=== PATIENT | female | born 1965 ===

== ENCOUNTER 2017-07-22 23:28 | Observation (INO) | payer BC ==
--- NOTE | 2017-07-23 00:27 | ED PDOC ---
HPI: Chest Pain Time Seen by Provider: 07/22/17 23:40 Chief Complaint (Nursing): Chest Pain Chief Complaint (Provider): Chest Pain History Per: Patient History/Exam Limitations: no limitations Current Symptoms Are (Timing): Still Present Additional Complaint(s): Patient is a 52 y/o female with a history of hypertriglyceridemia and dyslipidemia who presents to the ED with acute left sided chest pain that radiates down her left arm. She admits to nausea and a mild headache but denies vomiting and diaphoresis. PMD: None Provided Past Medical History Reviewed: Historical Data, Nursing Documentation, Vital Signs Vital Signs: Last Vital Signs Temp 98.1 F 07/23/17 05:09 Pulse 60 07/23/17 05:09 Resp 18 07/23/17 05:09 BP 113/74 07/23/17 05:09 Pulse Ox 98 07/23/17 05:09 - Medical History PMH: Hypercholesterolemia Other PMH: hypertriglyceridemia, dyslipidemia - Surgical History Surgical History: No Surg Hx - Family History Family History: States: Unknown Family Hx - Social History Current smoker - smoking cessation education provided: No Ex-Smoker (has not smoked in the last 12 months): No Alcohol: None Drugs: Denies - Home Medications Home Medications: Ambulatory Orders Medication Instructions Recorded Simvastatin [Zocor] 20 mg PO DAILY 07/23/17 - Allergies Allergies/Adverse Reactions: Allergies Allergy/AdvReac Type Severity Reaction Status Date / Time No Known Allergies Allergy Verified 08/24/16 13:37 Review of Systems ROS Statement: Except As Marked, All Systems Reviewed And Found Negative Constitutional: Negative for: Sweats Cardiovascular: Positive for: Chest Pain Gastrointestinal: Positive for: Nausea. Negative for: Vomiting Physical Exam - Reviewed Nursing Documentation Reviewed: Yes Vital Signs Reviewed: Yes - Physical Exam Appears: Positive for: Non-toxic, No Acute Distress Head Exam: Positive for: ATRAUMATIC, NORMAL INSPECTION, NORMOCEPHALIC Skin: Positive for: Normal Color, Warm, Dry Eye Exam: Positive for: Normal appearance, EOMI, PERRL. Negative for: Nystagmus ENT: Positive for: Normal ENT Inspection Neck: Positive for: Normal, Painless ROM, Supple Cardiovascular/Chest: Positive for: Regular Rate, Rhythm. Negative for: Edema, Murmur Respiratory: Positive for: Normal Breath Sounds. Negative for: Wheezing, Respiratory Distress Gastrointestinal/Abdominal: Positive for: Normal Exam, Bowel Sounds, Soft. Negative for: Tenderness Back: Positive for: Normal Inspection Extremity: Positive for: Normal ROM. Negative for: Pedal Edema, Deformity Neurologic/Psych: Positive for: Alert, Oriented - Laboratory Results Result Diagrams: 07/23/17 01:32 07/23/17 01:32 - ECG O2 Sat by Pulse Oximetry: 99 (RA) Pulse Ox Interpretation: Normal - Radiology X-Ray: Interpreted by Me, Viewed By Me X-Ray Interpretation: No Acute Disease Medical Decision Making Medical Decision Making: Time: 23:50 Initial Impression: 52 y/o female with chest pain in setting of dyslipidemia Initial Plan: --EKG --CMP --Troponin I --Urine --CBC --CXR --Aspirin --Urinalysis Time: 00:00 --Chest XR negative Time: 2:20 --Labs were viewed and show no clinically significant abnormalities --Patient placed on chest pain observation given risk factors including hypertriglycemia and dyslipidemia --Referred to Dr. Eric Scribe Attestation: Documented by Ever Truong, acting as a scribe for Dr. Angel Silva MD. Provider Scribe Attestation: All medical record entries made by the Scribe were at my direction and personally dictated by me. I have reviewed the chart and agree that the record accurately reflects my personal performance of the history, physical exam, medical decision making, and the department course for this patient. I have also personally directed, reviewed, and agree with the discharge instructions and disposition. Disposition - Clinical Impression Clinical Impression: Chest pain - Patient ED Disposition Is Patient to be Admitted: Yes Discussed With : Abdulkadir Clifford - Disposition Disposition Time: 01:00 Condition: FAIR - Pt Status Changed To: Hospital Disposition Of: Observation - POA Present On Arrival: None
[2017-07-23 01:36] LABS: BASO # 0.1 K/uL (0.0-0.2); BASO % 0.8 % (0.0-2.0); EOS # 0.1 K/uL (0.0-0.7); EOS % 0.9 % (0.0-4.0); HEMATOCRIT 40.8 % (34.0-47.0); LYMPH % 24.2 % (20.0-40.0); MEAN CELL VOLUME 87.3 fl (81.0-99.0); MEAN CORPUSCULAR HEMOGLOBIN 29.6 pg (27.0-31.0); MEAN CORPUSCULAR HGB CONC 33.9 g/dL (33.0-37.0); MONO # 0.6 K/uL (0.0-0.8); MONO % 7.5 % (0.0-10.0); NEUT # 5.5 K/uL (1.8-7.0); NEUT % 66.6 % (50.0-75.0); NRBC % 0.1 % (0.0-0.0); RED CELL DISTRIBUTION WIDTH 13.3 % (11.5-14.5); WHITE BLOOD COUNT 8.2 K/uL (4.8-10.8)
[2017-07-23 01:46] LABS: ALB/GLOB RATIO 1.4 (1.0-2.1); ALKALINE PHOSPHATASE 95 U/L (38-126); ALT/SGPT 50 U/L (9-52); AST/SGOT 84 U/L (14-36); BILIRUBIN,TOTAL 0.2 mg/dl (0.2-1.3); BLOOD UREA NITROGEN 16 mg/dl (7-17); CALCIUM 9.8 mg/dL (8.4-10.2); CARBON DIOXIDE 25 mmol/L (22-30); CHLORIDE 107 mmol/L (98-107); GFR AFRICAN-AMERICAN > 60; GLUCOSE,RANDOM 98 mg/dL (65-105); SODIUM 145 mmol/l (132-148)
[2017-07-23 02:26] LABS: RBC URINE 3 /hpf (0-3); URINE BILIRUBIN NEGATIVE (NEGATIVE); URINE BLOOD NEGATIVE (NEGATIVE); URINE COLOR BLUE (YELLOW); URINE GLUCOSE (UA) NEG (Normal); URINE KETONE NEGATIVE (NEGATIVE); URINE LEUKOCYTE ESTERASE NEG Leu/uL (Negative); URINE PROTEIN NEGATIVE (NEGATIVE); URINE UROBILINOGEN 0.2-1.0 mg/dL (0.2-1.0); WBC URINE 1 /hpf (0-5)
[2017-07-23 02:37] LABS: URINE BACTERIA TRACE (<OCC)
[2017-07-23] MEDS ORDERED: Influenza Vaccine 18yr & older 0.5 ML/45 MCG SYR IM ONE (06:00)
--- NOTE | 2017-07-23 08:15 | CARD ---
APPROVED REPORT EKG Measurement Heart [id number] <Conclusion> Normal sinus rhythm Nonspecific T wave abnormality Abnormal ECG
--- NOTE | 2017-07-23 08:19 | CARD ---
APPROVED REPORT EKG Measurement Heart [id number] <Conclusion> Normal sinus rhythm Cannot rule out Anterior infarct, age undetermined Abnormal ECG
[2017-07-23 17:02] VITALS: BP 104/67; PULSE 76; RESP 18; TEMP 98.1; O2SAT 99
--- NOTE | 2017-07-23 18:28 | CP.PCM.HP ---
Past Patient History - Infectious Disease Hx of Infectious Diseases: None - Past Medical History & Family History Past Medical History?: Yes - Past Social History Alcohol: None Drugs: Denies - CARDIAC Hx Hypercholesterolemia: Yes - PULMONARY Hx Respiratory Disorders: No - NEUROLOGICAL Hx Neurological Disorder: No - HEENT Hx HEENT Problems: No - RENAL Hx Chronic Kidney Disease: No - ENDOCRINE/METABOLIC Hx Endocrine Disorders: No - HEMATOLOGICAL/ONCOLOGICAL Hx Blood Disorders: No Hx AIDS: No Hx Human Immunodeficiency Virus (HIV): No - INTEGUMENTARY Hx Dermatological Problems: No - MUSCULOSKELETAL/RHEUMATOLOGICAL Hx Musculoskeletal Disorders: No Hx Falls: No - GASTROINTESTINAL Hx Gastrointestinal Disorders: No - GENITOURINARY/GYNECOLOGICAL Hx Genitourinary Disorders: No - PSYCHIATRIC Hx Psychophysiologic Disorder: No Hx Substance Use: No - SURGICAL HISTORY Hx Surgeries: No - ANESTHESIA Hx Anesthesia: Yes Hx Anesthesia Reactions: No Hx Malignant Hyperthermia: No Meds Allergies/Adverse Reactions: Allergies Allergy/AdvReac Type Severity Reaction Status Date / Time No Known Allergies Allergy Verified 08/24/16 13:37 Results - Vital Signs Recent Vital Signs: Last Vital Signs Temp 98.1 F 07/23/17 17:01 Pulse 76 07/23/17 17:01 Resp 18 07/23/17 17:01 BP 104/67 07/23/17 17:01 Pulse Ox 99 07/23/17 17:01 - Labs Result Diagrams: 07/23/17 01:32 07/23/17 01:32 Labs: Laboratory Results - last 24 hr 07/23/17 07/23/17 07/23/17 01:32 01:32 02:02 WBC 8.2 RBC 4.67 Hgb 13.8 Hct 40.8 MCV 87.3 MCH 29.6 MCHC 33.9 RDW 13.3 Plt Count 235 MPV 9.0 Neut % (Auto) 66.6 Lymph % (Auto) 24.2 Eddy % (Auto) 7.5 Eos % (Auto) 0.9 Baso % (Auto) 0.8 Neut # 5.5 Lymph # 2.0 Eddy # 0.6 Eos # 0.1 Baso # 0.1 Sodium 145 Potassium 4.0 Chloride 107 Carbon Dioxide 25 Anion Gap 18 BUN 16 Creatinine 0.7 Est GFR ( Amer) > 60 Est GFR (Non-Af Amer) > 60 Random Glucose 98 Calcium 9.8 Total Bilirubin 0.2 AST 84 H ALT 50 Alkaline Phosphatase 95 Troponin I < 0.0120 Total Protein 8.0 Albumin 4.6 Globulin 3.4 Albumin/Globulin Ratio 1.4 Urine Color Blue Urine Clarity Cloudy Urine pH 7.0 Ur Specific [place] 1.006 Urine Protein Negative Urine Glucose (UA) Neg Urine Ketones Negative Urine Blood Negative Urine Nitrate Negative Urine Bilirubin Negative Urine Urobilinogen 0.2-1.0 Ur Leukocyte Esterase Neg Urine RBC (Auto) 3 Urine Microscopic WBC 1 Ur Squamous Epith Cells < 1 Amorphous Sediment Occ H Urine Bacteria Trace 07/23/17 07/23/17 09:00 14:30 WBC RBC Hgb Hct MCV MCH MCHC RDW Plt Count MPV Neut % (Auto) Lymph % (Auto) Eddy % (Auto) Eos % (Auto) Baso % (Auto) Neut # Lymph # Eddy # Eos # Baso # Sodium Potassium Chloride Carbon Dioxide Anion Gap BUN Creatinine Est GFR ( Amer) Est GFR (Non-Af Amer) Random Glucose Calcium Total Bilirubin AST ALT Alkaline Phosphatase Troponin I < 0.0120 < 0.0120 Total Protein Albumin Globulin Albumin/Globulin Ratio Urine Color Urine Clarity Urine pH Ur Specific [place] Urine Protein Urine Glucose (UA) Urine Ketones Urine Blood Urine Nitrate Urine Bilirubin Urine Urobilinogen Ur Leukocyte Esterase Urine RBC (Auto) Urine Microscopic WBC Ur Squamous Epith Cells Amorphous Sediment Urine Bacteria
--- NOTE | 2017-07-23 18:35 | CP.PCM.DIS ---
Provider - Provider Date of Admission: 07/23/17 01:42 Attending physician: Abdulkadir Clifford MD Time Spent in preparation of Discharge (in minutes): 15 Hospital Course - Lab Results Lab Results: Most Recent Lab Values WBC 8.2 K/uL (4.8-10.8) 07/23/17 01:32 RBC 4.67 Mil/uL (3.80-5.20) 07/23/17 01:32 Hgb 13.8 g/dL (12.0-16.0) 07/23/17 01:32 Hct 40.8 % (34.0-47.0) 07/23/17 01:32 MCV 87.3 fl (81.0-99.0) 07/23/17 01:32 MCH 29.6 pg (27.0-31.0) 07/23/17 01:32 MCHC 33.9 g/dL (33.0-37.0) 07/23/17 01:32 RDW 13.3 % (11.5-14.5) 07/23/17 01:32 Plt Count 235 K/uL (130-400) 07/23/17 01:32 MPV 9.0 fl (7.2-11.7) 07/23/17 01:32 Neut % (Auto) 66.6 % (50.0-75.0) 07/23/17 01:32 Lymph % (Auto) 24.2 % (20.0-40.0) 07/23/17 01:32 [place] % (Auto) 7.5 % (0.0-10.0) 07/23/17 01:32 Eos % (Auto) 0.9 % (0.0-4.0) 07/23/17 01:32 Baso % (Auto) 0.8 % (0.0-2.0) 07/23/17 01:32 Neut # 5.5 K/uL (1.8-7.0) 07/23/17 01:32 Lymph # 2.0 K/uL (1.0-4.3) 07/23/17 01:32 [place] # 0.6 K/uL (0.0-0.8) 07/23/17 01:32 Eos # 0.1 K/uL (0.0-0.7) 07/23/17 01:32 Baso # 0.1 K/uL (0.0-0.2) 07/23/17 01:32 Sodium 145 mmol/l (132-148) 07/23/17 01:32 Potassium 4.0 MMOL/L (3.6-5.0) 07/23/17 01:32 Chloride 107 mmol/L (98-107) 07/23/17 01:32 Carbon Dioxide 25 mmol/L (22-30) 07/23/17 01:32 Anion Gap 18 (10-20) 07/23/17 01:32 BUN 16 mg/dl (7-17) 07/23/17 01:32 Creatinine 0.7 mg/dL (0.7-1.2) 07/23/17 01:32 Est GFR ( Amer) > 60 07/23/17 01:32 Est GFR (Non-Af Amer) > 60 07/23/17 01:32 Random Glucose 98 mg/dL (65-105) 07/23/17 01:32 Calcium 9.8 mg/dL (8.4-10.2) 07/23/17 01:32 Total Bilirubin 0.2 mg/dl (0.2-1.3) 07/23/17 01:32 AST 84 U/L (14-36) H 07/23/17 01:32 ALT 50 U/L (9-52) 07/23/17 01:32 Alkaline Phosphatase 95 U/L (38-126) 07/23/17 01:32 Troponin I < 0.0120 ng/mL (0.00-0.120) 07/23/17 14:30 Total Protein 8.0 G/DL (6.3-8.2) 07/23/17 01:32 Albumin 4.6 g/dL (3.5-5.0) 07/23/17 01:32 Globulin 3.4 gm/dL (2.2-3.9) 07/23/17 01:32 Albumin/Globulin Ratio 1.4 (1.0-2.1) 07/23/17 01:32 Urine Color Blue (YELLOW) 07/23/17 02:02 Urine Clarity Cloudy (Clear) 07/23/17 02:02 Urine pH 7.0 (5.0-8.0) 07/23/17 02:02 Ur Specific [place] 1.006 (1.003-1.030) 07/23/17 02:02 Urine Protein Negative mg/dL (NEGATIVE) 07/23/17 02:02 Urine Glucose (UA) Neg mg/dL (Normal) 07/23/17 02:02 Urine Ketones Negative mg/dL (NEGATIVE) 07/23/17 02:02 Urine Blood Negative (NEGATIVE) 07/23/17 02:02 Urine Nitrate Negative (NEGATIVE) 07/23/17 02:02 Urine Bilirubin Negative (NEGATIVE) 07/23/17 02:02 Urine Urobilinogen 0.2-1.0 mg/dL (0.2-1.0) 07/23/17 02:02 Ur Leukocyte Esterase Neg Homa/uL (Negative) 07/23/17 02:02 Urine RBC (Auto) 3 /hpf (0-3) 07/23/17 02:02 Urine Microscopic WBC 1 /hpf (0-5) 07/23/17 02:02 Ur Squamous Epith Cells < 1 /hpf (0-5) 07/23/17 02:02 Amorphous Sediment Occ /ul (<OCC) H 07/23/17 02:02 Urine Bacteria Trace (<OCC) 07/23/17 02:02 Discharge Exam - Head Exam Head Exam: ATRAUMATIC, NORMAL INSPECTION, NORMOCEPHALIC Discharge Plan - Discharge Medications Prescriptions: Aspirin [Aspirin Chewable] 81 mg PO DAILY #30 ctb Naproxen [Naprosyn] 500 mg PO BID PRN #20 tablet PRN Reason: Headache - Follow Up Plan Condition: FAIR Disposition: HOME/ ROUTINE
--- NOTE | 2017-07-24 16:41 | CARD ---
APPROVED REPORT EKG Measurement Heart [id number] <Conclusion> Normal sinus rhythm Nonspecific T wave abnormality Abnormal ECG
== END 2017-07-23 19:05 | disposition home or self-care (01) ==
LOC: H.ER 23:28 → H.TEL 07-23 01:42
PROVIDERS: ADMIT Internal Medicine; ATTEND Internal Medicine
DX: R51 Headache (principal); E78.00 Pure hypercholesterolemia, unspecified; E78.1 Pure hyperglyceridemia; E78.5 Hyperlipidemia, unspecified; Z79.899 Other long term (current) drug therapy; Z23 Encounter for immunization
CPT/HCPCS: 71020; 80053; 81003; 81025; 84484; 85025; 93005; 99285; G0008; G0378; Q2035

== ENCOUNTER 2018-01-10 18:11 | Observation (INO) | payer BC ==
[2018-01-10 19:51] LABS: BASO # 0.1 K/uL (0.0-0.2); BASO % 0.7 % (0.0-2.0); EOS # 0.1 K/uL (0.0-0.7); EOS % 1.4 % (0.0-4.0); HEMOGLOBIN 13.6 g/dL (12.0-16.0); LYMPH # 2.7 K/uL (1.0-4.3); LYMPH % 26.6 % (20.0-40.0); MEAN CELL VOLUME 88.4 fl (81.0-99.0); MEAN CORPUSCULAR HEMOGLOBIN 29.7 pg (27.0-31.0); MEAN CORPUSCULAR HGB CONC 33.6 g/dL (33.0-37.0); MEAN PLATELET VOLUME 8.6 fl (7.2-11.7); MONO # 0.7 K/uL (0.0-0.8); MONO % 6.5 % (0.0-10.0); NEUT # 6.6 K/uL (1.8-7.0); NEUT % 64.8 % (50.0-75.0); NRBC % 0.1 % (0.0-0.0); RBC 4.58 Mil/uL (3.80-5.20); RED CELL DISTRIBUTION WIDTH 13.1 % (11.5-14.5); WHITE BLOOD COUNT 10.2 K/uL (4.8-10.8)
[2018-01-10 20:00] LABS: ALB/GLOB RATIO 1.2 (1.0-2.1); ALBUMIN 4.4 g/dL (3.5-5.0); ALT/SGPT 35 U/L (9-52); AMYLASE 257 U/L (30-110); AST/SGOT 29 U/L (14-36); BLOOD UREA NITROGEN 15 mg/dl (7-17); CALCIUM 9.2 mg/dL (8.4-10.2); GFR AFRICAN-AMERICAN > 60; GFR NON-AFRICAN AMERICAN > 60; PARTIAL THROMBOPLASTIN TIME 36.1 Seconds (25.6-37.1); PROTHROMBIN TIME 10.7 Seconds (9.8-13.1)
--- NOTE | 2018-01-10 20:04 | ED PDOC ---
HPI: Abdomen Time Seen by Provider: 01/10/18 19:03 Chief Complaint (Nursing): Abdominal Pain Chief Complaint (Provider): Abdominal pain History Per: Patient History/Exam Limitations: no limitations Onset/Duration Of Symptoms: Days (2) Outside of [place] travel?: No Current Symptoms Are (Timing): Still Present Location Of Pain/Discomfort: RUQ, Epigastric Associated Symptoms: Back Pain. denies: Nausea, Vomiting, Diarrhea, Loss Of Appetite, Constipation, Urinary Symptoms Additional History Per: Patient Additional Complaint(s): 52yo female with history of high triglycerides, presents to ED with complaints of abdominal pain for the past 2 days, mainly in her epigastric an right upper quadrant. Patient states the pain is radiating to her back and is constant, with intermittent episodes where it becomes severe and sharp. She states the pain worsens with deep breathing. She reports normal PO intake and normal appetite; denies any nausea, vomiting, diarrhea, constipation or urinary symptoms. Patient states she took some Pepto Bismol without relief of her symptoms. She has no other medical complaints. PMD: Dr. Green Past Medical History Reviewed: Historical Data, Nursing Documentation, Vital Signs Vital Signs: Last Vital Signs Temp 98 F 01/12/18 16:28 Pulse 67 01/12/18 16:28 Resp 20 01/12/18 16:28 BP 124/79 01/12/18 16:28 Pulse Ox 97 01/12/18 16:28 - Medical History PMH: Hypercholesterolemia Denies: HIV, Chronic Kidney Disease - Surgical History Surgical History: No Surg Hx - Family History Family History: States: Unknown Family Hx - Social History Current smoker - smoking cessation education provided: No Alcohol: None Drugs: Denies - Home Medications Home Medications: Ambulatory Orders Medication Instructions Recorded Simvastatin [Zocor] 20 mg PO DAILY 07/23/17 Famotidine [Pepcid] 20 mg PO DAILY #30 tab 01/12/18 - Allergies Allergies/Adverse Reactions: Allergies Allergy/AdvReac Type Severity Reaction Status Date / Time No Known Allergies Allergy Verified 08/24/16 13:37 Review of Systems ROS Statement: Except As Marked, All Systems Reviewed And Found Negative (as per HPI) Gastrointestinal: Positive for: Abdominal Pain. Negative for: Nausea, Vomiting , Diarrhea, Constipation Genitourinary Female: Negative for: Dysuria, Frequency, Hematuria Musculoskeletal: Positive for: Back Pain Physical Exam - Reviewed Nursing Documentation Reviewed: Yes Vital Signs Reviewed: Yes - Physical Exam Appears: Positive for: Uncomfortable, In Acute Distress Head Exam: Positive for: ATRAUMATIC, NORMAL INSPECTION, NORMOCEPHALIC Skin: Positive for: Warm, Dry. Negative for: Jaundice Eye Exam: Positive for: EOMI, PERRL ENT: Negative for: Pharyngeal Erythema, Tonsillar Exudate Neck: Positive for: Painless ROM, Supple Cardiovascular/Chest: Positive for: Regular Rate, Rhythm. Negative for: Murmur Respiratory: Positive for: Normal Breath Sounds. Negative for: Wheezing Gastrointestinal/Abdominal: Positive for: Soft, Tenderness (epigastric, right upper quadrant; (+) Mojica's sign (-) McBurney's point tenderness). Negative for: Mass, Distended, Guarding, Rebound Back: Positive for: R CVA Tenderness. Negative for: Decreased ROM Extremity: Positive for: Normal ROM. Negative for: Deformity Lymphatic: Negative for: Adenopathy Neurologic/Psych: Positive for: Alert. Negative for: Motor/Sensory Deficits - Laboratory Results Result Diagrams: 01/11/18 06:10 01/11/18 06:10 - ECG O2 Sat by Pulse Oximetry: 99 (RA) Pulse Ox Interpretation: Normal Medical Decision Making Medical Decision Making: Impression: Abdominal pain Differential (including but not limited to): Gallstones, pancreatitis, cholecystitis, hepatitis, renal colic Plan: -- Labs -- Toradol 15 mg IVP -- Morphine 4mg IVP -- US Gallbladder and hepatic Time: 2044 US Gallbladder and Hepatic FINDINGS: Liver: Unremarkable. No intrahepatic bile duct dilation. Gallbladder: Unremarkable. No gallstones. Common bile duct: Measures 4 mm. Pancreas: Unremarkable as visualized. Right kidney: Unremarkable. No hydronephrosis. IMPRESSION: No evidence of cholelithiasis. Time: 2099 US findings discussed with patient. Case discussed with Dr. Puckett and orders placed per discussion. Time: [address] Peraza, patient to be admitted under his service for pancreatitis. Plan for admission discussed with patient who is agreeable. Scribe Attestation: Documented by Shameka Clifford acting as a scribe for Gisele Reyes MD. Provider Attestation: All medical record entries made by the Scribe were at my direction and personally dictated by me. I have reviewed the chart and agree that the record accurately reflects my personal performance of the history, physical exam, medical decision making, and the department course for this patient. I have also personally directed, reviewed, and agree with the discharge instructions and disposition. Disposition - Clinical Impression Clinical Impression: Pancreatitis, Hypertriglyceridemia - Disposition Disposition Time: 21:00 Condition: FAIR - Pt Status Changed To: Hospital Disposition Of: Observation - POA Present On Arrival: None
[2018-01-10 20:34] LABS: LIPASE 2334 U/L (23-300)
[2018-01-10] MEDS ORDERED: Sodium Chloride 0.9% 1,000 ML IV STA ×2 (21:20→21:21)
[2018-01-10] MEDS: Dextrose 5%/Lactated Ringer's 1,000 ML IV SCH (23:28)
[2018-01-11] MEDS: Dextrose 5%/Lactated Ringer's 1,000 ML IV SCH ×3 (05:30→18:33)
[2018-01-11 06:51] LABS: BASO # 0.1 K/uL (0.0-0.2); BASO % 0.7 % (0.0-2.0); EOS # 0.2 K/uL (0.0-0.7); EOS % 2.9 % (0.0-4.0); HEMOGLOBIN 12.5 g/dL (12.0-16.0); LYMPH # 2.4 K/uL (1.0-4.3); LYMPH % 34.4 % (20.0-40.0); MEAN CELL VOLUME 89.1 fl (81.0-99.0); MEAN CORPUSCULAR HGB CONC 33.7 g/dL (33.0-37.0); MEAN PLATELET VOLUME 8.7 fl (7.2-11.7); MONO # 0.6 K/uL (0.0-0.8); MONO % 8.5 % (0.0-10.0); NEUT # 3.8 K/uL (1.8-7.0); NEUT % 53.5 % (50.0-75.0); NRBC % 0.1 % (0.0-0.0); RBC 4.15 Mil/uL (3.80-5.20); RED CELL DISTRIBUTION WIDTH 13.2 % (11.5-14.5); WHITE BLOOD COUNT 7.1 K/uL (4.8-10.8)
[2018-01-11 07:06] LABS: LDL CHOLESTEROL 97 mg/dL (0-129)
[2018-01-11 07:35] LABS: ALB/GLOB RATIO 1.2 (1.0-2.1); ALBUMIN 3.5 g/dL (3.5-5.0); ALT/SGPT 32 U/L (9-52); AST/SGOT 22 U/L (14-36); BLOOD UREA NITROGEN 15 mg/dl (7-17); CALCIUM 8.9 mg/dL (8.4-10.2); GFR AFRICAN-AMERICAN > 60; GFR NON-AFRICAN AMERICAN > 60; HDL CHOLESTEROL 38 MG/DL (30-70)
--- NOTE | 2018-01-11 09:06 | US ---
HISTORY: RUQ pain COMPARISON: None. TECHNIQUE: Sonographic evaluation of the right upper quadrant of the abdomen. FINDINGS: LIVER: Measures 15.0 cm in length. Patent portal vein. Portal venous flow: Hepatopetal. Unremarkable echogenicity of the liver parenchyma. No mass. No intrahepatic bile duct dilatation. GALLBLADDER: Unremarkable. No gallstones. COMMON BILE DUCT: Measures 30.6 mm. No stones. No dilatation. PANCREAS: Unremarkable as visualized. No mass. No ductal dilatation. RIGHT KIDNEY: Measures 4.3 x 9.4 cm in length. Normal echogenicity. No calculus, mass, or hydronephrosis. AORTA: No aneurysmal dilatation. IVC: Unremarkable. OTHER FINDINGS: None . IMPRESSION: No significant or acute findings to account for/ related to the clinical presentation. Concordant results (preliminary interpretation) provided by [facility]. Procedure Completed: 20:06 Preliminary ([facility]) Report: Dictated and Authenticated: 20:45 Final Interpretation: 09:04 January 11, 2018.
--- NOTE | 2018-01-11 12:58 | CP.PCM.HP ---
History of Present Illness - History of Present Illness History of Present Illness: CC: abdominal pain HPI: 52 y/o woman w/ pmh of high triglycerides presented to ED with complaints of abdominal pain. Patient reports pain started on the right side but now epigastric/left sided, started 2 day ago, radiating to her back and is constant , with intermittent episodes where it becomes severe and sharp. Patient states the pain worsens with deep breathing. Patient states she took Pepto Bismol without relief of her symptoms. Patient reports regular PO intake and normal appetite. Patient reports mild tension headache but denies chest pain, SOB, nausea, vomiting, diarrhea, constipation or urinary symptoms. She has no other medical complaints. PMD: Dr. Green PMH: hypertriglyceridemia meds: see med list Allergies: NKDA PSH: denies Fam: denies SOC: denies smoking, alcohol, and drugs ROS: 12 points assessed and negative unless otherwise reported in HPI Present on Admission - Present on Admission Any Indicators Present on Admission: No History of DVT/PE: No History of Uncontrolled Diabetes: No Urinary Catheter: No Decubitus Ulcer Present: No Review of Systems - Constitutional Constitutional: As Per HPI, Headache. absent: Chills, Fever - EENT Eyes: absent: Change in Vision - Cardiovascular Cardiovascular: absent: Chest Pain - Respiratory Respiratory: absent: Dyspnea - Gastrointestinal Gastrointestinal: As Per HPI, Abdominal Pain. absent: Constipation, Diarrhea, Hematochezia, Melena, Nausea, Vomiting - Genitourinary Genitourinary: absent: Dysuria - Integumentary Integumentary: absent: Rash Past Patient History - Infectious Disease Hx of Infectious Diseases: None - Past Medical History & Family History Past Medical History?: Yes - Past Social History Smoking Status: Never Smoked - CARDIAC Hx Cardiac Disorders: Yes Hx Hypercholesterolemia: Yes - PULMONARY Hx Respiratory Disorders: No - NEUROLOGICAL Hx Neurological Disorder: No - HEENT Hx HEENT Problems: No - RENAL Hx Chronic Kidney Disease: No - ENDOCRINE/METABOLIC Hx Endocrine Disorders: No - HEMATOLOGICAL/ONCOLOGICAL Hx Blood Disorders: No Hx Human Immunodeficiency Virus (HIV): No - INTEGUMENTARY Hx Dermatological Problems: No - MUSCULOSKELETAL/RHEUMATOLOGICAL Hx Musculoskeletal Disorders: No Hx Falls: No - GASTROINTESTINAL Hx Gastrointestinal Disorders: No - GENITOURINARY/GYNECOLOGICAL Hx Genitourinary Disorders: No - PSYCHIATRIC Hx Psychophysiologic Disorder: No Hx Substance Use: No - SURGICAL HISTORY Hx Surgeries: No - ANESTHESIA Hx Anesthesia: Yes Hx Anesthesia Reactions: No Hx Malignant Hyperthermia: No Meds Allergies/Adverse Reactions: Allergies Allergy/AdvReac Type Severity Reaction Status Date / Time No Known Allergies Allergy Verified 08/24/16 13:37 Physical Exam - Constitutional Appears: Non-toxic, No Acute Distress - Head Exam Head Exam: ATRAUMATIC, NORMAL INSPECTION, NORMOCEPHALIC - Eye Exam Eye Exam: Normal appearance - ENT Exam ENT Exam: Mucous Membranes Moist - Neck Exam Neck exam: Positive for: Full Rom. Negative for: Tenderness - Respiratory Exam Respiratory Exam: Clear to Auscultation Bilateral. absent: Accessory Muscle Use , Decreased Breath Sounds, Rales, Rhonchi, Wheezes, Respiratory Distress - Cardiovascular Exam Cardiovascular Exam: REGULAR RHYTHM. absent: Tachycardia - GI/Abdominal Exam GI & Abdominal Exam: Normal Bowel Sounds, Soft, Tenderness (epigastric and left upper quadrant). absent: Distended, Guarding, Rebound - Extremities Exam Extremities exam: Negative for: calf tenderness, pedal edema, tenderness - Neurological Exam Neurological exam: Alert, Oriented x3 - Skin Skin Exam: Dry, Intact, Normal Color, Warm Results - Vital Signs Recent Vital Signs: Last Vital Signs Temp 97.9 F 01/11/18 08:23 Pulse 71 01/11/18 08:23 Resp 18 01/11/18 08:23 BP 106/71 01/11/18 08:23 Pulse Ox 97 01/11/18 08:23 - Labs Result Diagrams: 01/11/18 06:10 01/11/18 06:10 Labs: Laboratory Results - last 24 hr 01/10/18 01/10/18 01/10/18 19:41 19:41 19:41 WBC 10.2 RBC 4.58 Hgb 13.6 Hct 40.5 MCV 88.4 MCH 29.7 MCHC 33.6 RDW 13.1 Plt Count 243 MPV 8.6 Neut % (Auto) 64.8 Lymph % (Auto) 26.6 [place] % (Auto) 6.5 Eos % (Auto) 1.4 Baso % (Auto) 0.7 Neut # (Auto) 6.6 Lymph # (Auto) 2.7 [place] # (Auto) 0.7 Eos # (Auto) 0.1 Baso # (Auto) 0.1 PT 10.7 INR 1.0 APTT 36.1 Sodium 145 Potassium 4.0 Chloride 106 Carbon Dioxide 24 Anion Gap 19 BUN 15 Creatinine 0.8 Est GFR ( Amer) > 60 Est GFR (Non-Af Amer) > 60 Random Glucose 91 Calcium 9.2 Total Bilirubin 0.4 AST 29 ALT 35 Alkaline Phosphatase 78 Lactate Dehydrogenase 445 Total Protein 8.0 Albumin 4.4 Globulin 3.6 Albumin/Globulin Ratio 1.2 Triglycerides Cholesterol LDL Cholesterol Direct HDL Cholesterol Amylase 257 H Lipase 2334 H 01/11/18 01/11/18 06:10 06:10 WBC 7.1 RBC 4.15 Hgb 12.5 Hct 37.0 MCV 89.1 MCH 30.0 MCHC 33.7 RDW 13.2 Plt Count 216 MPV 8.7 Neut % (Auto) 53.5 Lymph % (Auto) 34.4 [place] % (Auto) 8.5 Eos % (Auto) 2.9 Baso % (Auto) 0.7 Neut # (Auto) 3.8 Lymph # (Auto) 2.4 [place] # (Auto) 0.6 Eos # (Auto) 0.2 Baso # (Auto) 0.1 PT INR APTT Sodium 147 Potassium 4.2 Chloride 110 H Carbon Dioxide 24 Anion Gap 17 BUN 15 Creatinine 0.7 Est GFR ( Amer) > 60 Est GFR (Non-Af Amer) > 60 Random Glucose 92 Calcium 8.9 Total Bilirubin 0.4 AST 22 ALT 32 Alkaline Phosphatase 55 Lactate Dehydrogenase Total Protein 6.5 Albumin 3.5 D Globulin 3.0 Albumin/Globulin Ratio 1.2 Triglycerides 161 H Cholesterol 174 LDL Cholesterol Direct 97 HDL Cholesterol 38 Amylase Lipase Assessment & Plan (1) Abdominal pain Status: Acute (2) Pancreatitis Status: Acute (3) Hypertriglyceridemia Status: Chronic - Assessment and Plan (Free Text) Plan: c/w present management afebrile, non-tachycardic, normotensive GI consult ordered CBC: 7.1>12.5/37.0<216 CMP: 147/4.2, 110/24, 15/0.7, glucose 92, AST 22, ALT 32, alk phos 55 lipase: 2334 lipid profile: trig 161, chol 174, LDL 97, HDl 38 U/S gallbladder: no gallstones maintain NPO for now IVF D5 LR @ 160 mL/h pain management: toradol 15 mg Iv Q6h prn, morphine 4 mg IV Q6h prn f/u U/S abdomen f/u lipase prophylactic measures: DVT SCDs monitor for acute changes
--- NOTE | 2018-01-12 08:39 | CON ---
DATE: 01/11/2018 REFERRING DOCTOR: Josias Peraza MD REASON FOR CONSULTATION: Abdominal pain. HISTORY OF PRESENT ILLNESS: This is a very sary 52-year-old female with a history of hypertriglyceridemia, now comes in with abdominal pain and comfort on right side. All symptoms resolved. Nausea and vomiting improved. She had in the past. No fever or chills. At this point asking for food, lying in bed comfortably, and in no apparent distress. PAST MEDICAL HISTORY: As above. PAST SURGICAL HISTORY: As above. MEDICATIONS: Have been reviewed. REVIEW OF SYSTEMS: All other systems have been reviewed and negative apart from the HPI. PHYSICAL EXAMINATION: GENERAL: This is a pleasant, middle age female lying in bed comfortably, in no apparent distress. VITAL SIGNS: During here in the hospital, grossly unremarkable. HEENT: Head is normocephalic atraumatic. Eyes, pupils are equally reactive to light bilaterally. No conjunctival pallor or icterus. NECK: Supple. Normal range of motion. No lymphadenopathy appreciated. LUNGS: Coarse breath sounds bilaterally. HEART: S1 and S2, regular rate and rhythm. No murmurs appreciated. ABDOMEN: Soft and nontender. Bowel sounds present. No rebound. No guarding. RECTAL: Deferred. EXTREMITIES: Pulses present bilaterally. SKIN: Warm, dry and intact. NEUROLOGIC: A and O x3. LABORATORY DATA: Labs and radiology have been reviewed. Labs include WBC of 7.1, hemoglobin 12.5, and hematocrit 37, . Gallbladder ultrasound shows no significant findings. No gallstones. ASSESSMENT AND PLAN: This is a 52-year-old female with pancreatitis. At this point, the patient is doing better, advance diet as tolerated, and IV hydration until pain completely resolved. Pain control as needed. Zofran as needed. Thank you for the consult. Nicola Puckett MD/ PhD cc: Josias Peraza MD
[2018-01-12 08:44] VITALS: RESP 20
[2018-01-12] MEDS ORDERED: Dextrose 5%/Lactated Ringer's 1,000 ML IV SCH (09:00)
--- NOTE | 2018-01-12 11:34 | CP.PCM.PN ---
Subjective - Date & Time of Evaluation Date of Evaluation: 01/12/18 Time of Evaluation: 08:00 - Subjective Subjective: GI Fellow PGY4 Progress Note Patient seen and evaluated at bedside, pt doing well with no more abdominal pain , nausea or vomiting. Pt tolerating clear liquid diet this am. BM was 2 days ago , denies constipation or diarrhea. ROS: A 12pt ROS was negative except as above Objective - Vital Signs/Intake and Output Vital Signs (last 24 hours): Temp Pulse Resp BP Pulse Ox 98.4 F 65 20 133/82 97 01/12/18 08:43 01/12/18 08:43 01/12/18 08:43 01/12/18 08:43 01/12/18 08:43 - Medications Medications: Current Medications Famotidine (Pepcid) 20 mg IVP DAILY [facility] Last Admin: 01/12/18 08:39 Dose: 20 mg Dextrose/Lactated Ringer's (Dextrose 5%/Lactated Ringer's) 1,000 mls @ 160 mls/ hr IV .Q6H15M [facility] Stop: 01/13/18 08:53 Ketorolac Tromethamine (Toradol) 15 mg IVP Q6 PRN PRN Reason: Pain, moderate (4-7) Last Admin: 01/11/18 09:38 Dose: 15 mg Metoclopramide HCl (Reglan) 10 mg IVP Q6 PRN PRN Reason: Nausea/Vomiting Last Admin: 01/11/18 21:08 Dose: 10 mg Morphine Sulfate (Morphine) 4 mg IVP Q6 PRN PRN Reason: Pain, severe (8-10) Last Admin: 01/11/18 21:09 Dose: 4 mg - Labs Labs: 01/11/18 06:10 01/11/18 06:10 PT 10.7 Seconds (9.8-13.1) 01/10/18 19:41 INR 1.0 (0.9-1.2) 01/10/18 19:41 APTT 36.1 Seconds (25.6-37.1) 01/10/18 19:41 - Constitutional Appears: Non-toxic, No Acute Distress - Head Exam Head Exam: ATRAUMATIC, NORMAL INSPECTION, NORMOCEPHALIC - Eye Exam Eye Exam: EOMI, Normal appearance, PERRL Pupil Exam: PERRL - ENT Exam ENT Exam: Mucous Membranes Moist - Neck Exam Neck Exam: Normal Inspection - Respiratory Exam Respiratory Exam: Clear to Ausculation Bilateral, NORMAL BREATHING PATTERN - Cardiovascular Exam Cardiovascular Exam: REGULAR RHYTHM, RRR, +S1, +S2 - GI/Abdominal Exam GI & Abdominal Exam: Soft, Normal Bowel Sounds. absent: Distended, Firm, Guarding, Rigid, Tenderness, Organomegaly - Rectal Exam Rectal Exam: Deferred - Extremities Exam Extremities Exam: Full ROM, Normal Inspection - Back Exam Back Exam: NORMAL INSPECTION - Neurological Exam Neurological Exam: Alert, Awake, Oriented x3 - Psychiatric Exam Psychiatric exam: Normal Affect, Normal Mood - Skin Skin Exam: Dry, Intact, Normal Color, Warm Assessment and Plan - Assessment and Plan (Free Text) Assessment: This is a 52yF presenting with complaints of abdominal pain. 1. Acute pancreatitis Plan: -Continue supportive care with pain control and anti-emetics -Acute pancreatitis with clinical improvement, unclear etiology with Abd us negative for gallstones, no hx of etoh, triglyceride mildly elevated usually >1, 000 for acute pancreatitis -Recommend outpt CT scan maybe 2/2 pancreatic divisium -IVF hydration -Advance to low fat diet -If pt tolerates diet with no pain okay for discharge home and outpt followup -Will sign off please call with any questions or concerns
--- NOTE | 2018-01-12 14:21 | CP.PCM.PN ---
Subjective - Date & Time of Evaluation Date of Evaluation: 01/12/18 Time of Evaluation: 11:00 - Subjective Subjective: Patient seen and examined this morning at bedside w Dr. Peraza. There are no acute overnight, NAD. The patient is laying down in bed comfortably. The patient reports much improvement w/ abdominal pain. Patient is tolerating PO liquids. Patient sen by GI and will advance diet. Patient denies headaches, chest pain, SOB, nausea, vomiting, diarrhea, dysuria, or fever. Objective - Vital Signs/Intake and Output Vital Signs (last 24 hours): Temp Pulse Resp BP Pulse Ox 98.4 F 65 20 133/82 97 01/12/18 08:43 01/12/18 08:43 01/12/18 08:43 01/12/18 08:43 01/12/18 08:43 - Medications Medications: Current Medications Famotidine (Pepcid) 20 mg IVP DAILY [facility] Last Admin: 01/12/18 08:39 Dose: 20 mg Dextrose/Lactated Ringer's (Dextrose 5%/Lactated Ringer's) 1,000 mls @ 160 mls/ hr IV .Q6H15M [facility] Stop: 01/13/18 08:53 Last Admin: 01/12/18 10:00 Dose: 160 mls/hr Ketorolac Tromethamine (Toradol) 15 mg IVP Q6 PRN PRN Reason: Pain, moderate (4-7) Last Admin: 01/11/18 09:38 Dose: 15 mg Metoclopramide HCl (Reglan) 10 mg IVP Q6 PRN PRN Reason: Nausea/Vomiting Last Admin: 01/11/18 21:08 Dose: 10 mg Morphine Sulfate (Morphine) 4 mg IVP Q6 PRN PRN Reason: Pain, severe (8-10) Last Admin: 01/11/18 21:09 Dose: 4 mg - Labs Labs: 01/11/18 06:10 01/11/18 06:10 PT 10.7 Seconds (9.8-13.1) 01/10/18 19:41 INR 1.0 (0.9-1.2) 01/10/18 19:41 APTT 36.1 Seconds (25.6-37.1) 01/10/18 19:41 - Constitutional Appears: Non-toxic, No Acute Distress - Head Exam Head Exam: ATRAUMATIC, NORMAL INSPECTION, NORMOCEPHALIC - Eye Exam Eye Exam: Normal appearance - ENT Exam ENT Exam: Mucous Membranes Moist - Neck Exam Neck Exam: Full ROM. absent: Tenderness - Respiratory Exam Respiratory Exam: Clear to Ausculation Bilateral. absent: Accessory Muscle Use , Decreased Breath Sounds, Rales, Rhonchi, Wheezes, Respiratory Distress - Cardiovascular Exam Cardiovascular Exam: REGULAR RHYTHM. absent: Tachycardia - GI/Abdominal Exam GI & Abdominal Exam: Soft, Normal Bowel Sounds. absent: Distended, Tenderness - Extremities Exam Extremities Exam: absent: Calf Tenderness, Pedal Edema, Tenderness - Neurological Exam Neurological Exam: Alert, Awake, Oriented x3 - Skin Skin Exam: Dry, Intact, Normal Color, Warm Assessment and Plan (1) Abdominal pain Status: Acute (2) Pancreatitis Status: Acute (3) Hypertriglyceridemia Status: Chronic - Assessment and Plan (Free Text) Plan: c/w present management afebrile, non-tachycardic, normotensive GI recommendations appreciated CBC: 7.1>12.5/37.0<216 CMP: 147/4.2, 110/24, 15/0.7, glucose 92, AST 22, ALT 32, alk phos 55 lipase: 1386 lipid profile: trig 161, chol 174, LDL 97, HDl 38 U/S gallbladder: no gallstones tolerated liquid diet advanced to low fat diet pain management: toradol 15 mg Iv Q6h prn, morphine 4 mg IV Q6h prn prophylactic measures: DVT SCDs monitor for acute changes dispo DC to home
--- NOTE | 2018-01-12 15:37 | CP.PCM.DIS ---
Provider - Provider Date of Admission: 01/10/18 21:21 Attending physician: Josias Peraza MD Time Spent in preparation of Discharge (in minutes): 15 Diagnosis - Discharge Diagnosis (1) Abdominal pain Status: Acute (2) Pancreatitis Status: Acute (3) Hypertriglyceridemia Status: Chronic Hospital Course - Lab Results Lab Results: Most Recent Lab Values WBC 7.1 K/uL (4.8-10.8) 01/11/18 06:10 RBC 4.15 Mil/uL (3.80-5.20) 01/11/18 06:10 Hgb 12.5 g/dL (12.0-16.0) 01/11/18 06:10 Hct 37.0 % (34.0-47.0) 01/11/18 06:10 MCV 89.1 fl (81.0-99.0) 01/11/18 06:10 MCH 30.0 pg (27.0-31.0) 01/11/18 06:10 MCHC 33.7 g/dL (33.0-37.0) 01/11/18 06:10 RDW 13.2 % (11.5-14.5) 01/11/18 06:10 Plt Count 216 K/uL (130-400) 01/11/18 06:10 MPV 8.7 fl (7.2-11.7) 01/11/18 06:10 Neut % (Auto) 53.5 % (50.0-75.0) 01/11/18 06:10 Lymph % (Auto) 34.4 % (20.0-40.0) 01/11/18 06:10 Ferry % (Auto) 8.5 % (0.0-10.0) 01/11/18 06:10 Eos % (Auto) 2.9 % (0.0-4.0) 01/11/18 06:10 Baso % (Auto) 0.7 % (0.0-2.0) 01/11/18 06:10 Neut # (Auto) 3.8 K/uL (1.8-7.0) 01/11/18 06:10 Lymph # (Auto) 2.4 K/uL (1.0-4.3) 01/11/18 06:10 Ferry # (Auto) 0.6 K/uL (0.0-0.8) 01/11/18 06:10 Eos # (Auto) 0.2 K/uL (0.0-0.7) 01/11/18 06:10 Baso # (Auto) 0.1 K/uL (0.0-0.2) 01/11/18 06:10 PT 10.7 Seconds (9.8-13.1) 01/10/18 19:41 INR 1.0 (0.9-1.2) 01/10/18 19:41 APTT 36.1 Seconds (25.6-37.1) 01/10/18 19:41 Sodium 147 mmol/l (132-148) 01/11/18 06:10 Potassium 4.2 MMOL/L (3.6-5.0) 01/11/18 06:10 Chloride 110 mmol/L (98-107) H 01/11/18 06:10 Carbon Dioxide 24 mmol/L (22-30) 01/11/18 06:10 Anion Gap 17 (10-20) 01/11/18 06:10 BUN 15 mg/dl (7-17) 01/11/18 06:10 Creatinine 0.7 mg/dl (0.7-1.2) 01/11/18 06:10 Est GFR ( Amer) > 60 01/11/18 06:10 Est GFR (Non-Af Amer) > 60 01/11/18 06:10 Random Glucose 92 mg/dL (65-105) 01/11/18 06:10 Calcium 8.9 mg/dL (8.4-10.2) 01/11/18 06:10 Total Bilirubin 0.4 mg/dl (0.2-1.3) 01/11/18 06:10 AST 22 U/L (14-36) 01/11/18 06:10 ALT 32 U/L (9-52) 01/11/18 06:10 Alkaline Phosphatase 55 U/L (38-126) 01/11/18 06:10 Lactate Dehydrogenase 445 U/L (313-618) 01/10/18 19:41 Total Protein 6.5 G/DL (6.3-8.2) 01/11/18 06:10 Albumin 3.5 g/dL (3.5-5.0) D 01/11/18 06:10 Globulin 3.0 gm/dL (2.2-3.9) 01/11/18 06:10 Albumin/Globulin Ratio 1.2 (1.0-2.1) 01/11/18 06:10 Triglycerides 161 mg/DL (0-149) H 01/11/18 06:10 Cholesterol 174 mg/dL (0-199) 01/11/18 06:10 LDL Cholesterol Direct 97 mg/dL (0-129) 01/11/18 06:10 HDL Cholesterol 38 MG/DL (30-70) 01/11/18 06:10 Amylase 257 U/L (30-110) H 01/10/18 19:41 Lipase 1386 U/L (23-300) H 01/11/18 13:00 - Hospital Course Hospital Course: 52 y/o woman w/ pmh of high triglycerides presented to ED with complaints of abdominal pain. Patient seen and evaluated in the ED. Patient found to have acute pancreatitis. Patient made NPO and started on IVF. Patient reported progressive improvement w/ pain. Patient seen by GI. Patient diet advanced to liquids which patient tolerated. Patient advanced to low fat diet which the patient tolerated. The patient reports minimal pain. The patient has been seen , examined, and deemed medically fit for discharge home. The patient is to follow up w/ PMD Dr. Peraza and GI in 1 week. The patient has been given an updated medication list and prescriptions. Discharge Exam - Head Exam Head Exam: ATRAUMATIC, NORMAL INSPECTION, NORMOCEPHALIC - Eye Exam Eye Exam: Normal appearance - ENT Exam ENT Exam: Mucous Membranes Moist - Neck Exam Neck exam: Full Rom - Respiratory Exam Respiratory Exam: Clear to PA & Lateral. absent: Accessory Muscle Use, Decreased Breath Sounds, Rales, Rhonchi, Wheezes, Respiratory Distress - Cardiovascular Exam Cardiovascular Exam: REGULAR RHYTHM. absent: Tachycardia - GI/Abdominal Exam GI & Abdominal Exam: Normal Bowel Sounds, Soft. absent: Distended, Tenderness - Extremities Exam Extremities exam: normal inspection - Neurological Exam Neurological exam: Alert, Normal Gait, Oriented x3 - Skin Skin Exam: Dry, Intact, Normal Color, Warm Discharge Plan - Discharge Medications Prescriptions: Famotidine [Pepcid] 20 mg PO DAILY #30 tab - Follow Up Plan Condition: GOOD Disposition: HOME/ ROUTINE Referrals: Josias Peraza MD [Staff Provider] - Nicola Puckett MD, PhD [Staff Provider] -
[2018-01-12 16:29] VITALS: BP 124/79; PULSE 67; TEMP 98
[2018-01-13 14:15] VITALS: O2SAT 99
== END 2018-01-12 17:00 | disposition home or self-care (01) ==
LOC: H.ER 18:11 → H.ERHOLD 21:21 → H.MEDSURG1 22:48
PROVIDERS: ADMIT Family Medicine; ATTEND Family Medicine
DX: K85.90 Acute pancreatitis without necrosis or infection, unspecified (principal); E78.00 Pure hypercholesterolemia, unspecified; E78.1 Pure hyperglyceridemia
CPT/HCPCS: 36415; 76705; 80053; 80061; 81025; 82150; 83615; 83690; 85025; 85610; 85730; 96360; 96374; 99285; G0378; J1885; J2270; J2765; J7040; J7120